=== PATIENT | female | born 1945 | race Caucasian/White ===

== ENCOUNTER → 2017-07-18 08:16 | Outpatient (CLI) | payer MEDICARE, SELFPAY ==
[2017-07-18 09:51] LABS: Calcium 9.6 mg/dL (8.4-10.2); Estimated Glomerular Filt Rate > 60.0 mL/min (>60); Glucose 94 mg/dL (80-110); HEMOLYSIS < 15 (0-50); Potassium 4.2 mmol/L (3.4-5.1); Sodium 144 mmol/L (137-145)
== END ==
PROVIDERS: PCP Family Medicine; Visit Provider Family Medicine
DX: I10 Essential (primary) hypertension (principal)
CPT/HCPCS: 36415; 80048

== ENCOUNTER → 2018-12-24 09:35 | Outpatient (CLI) | payer MEDICARE, SELFPAY ==
[2018-12-24 10:29] LABS: Alanine Aminotransferase 16 IU/L (9-52); Albumin 4.9 g/dL (3.5-5.0); Albumin Globulin Ratio 1.6 (1.0-2.8); Alkaline Phosphatase 75 U/L (38-126); Aspartate Aminotransferase 23 IU/L (14-36); BUN Creatinine Ratio 16.3 (6-22); Bilirubin Total 0.7 mg/dL (0.2-1.3); Blood Urea Nitrogen 13 mg/dL (7-17); Calcium 9.8 mg/dL (8.4-10.2); Carbon Dioxide 27 mmol/L (22-32); Chloride 105 mmol/L (98-107); Estimated Glomerular Filt Rate > 60.0 mL/min (>60); Globulin 3.1 g/dL (1.7-4.1); Glucose 105 mg/dL (80-110); HEMOLYSIS < 15 (0-50); Potassium 4.8 mmol/L (3.4-5.1); Sodium 142 mmol/L (137-145)
== END ==
PROVIDERS: PCP Family Medicine; Visit Provider Family Medicine
DX: I10 Essential (primary) hypertension (principal)
CPT/HCPCS: 36415; 80053

== ENCOUNTER → 2020-10-02 10:29 | Outpatient (CLI) | payer MEDICARE, SELFPAY ==
--- NOTE | 2020-10-02 10:30 | DI.MG.S_ITS ---
BILATERAL DIGITAL SCREENING MAMMOGRAM 3D/2D WITH CAD: 10/02/2020 CLINICAL: Routine screening. Comparison is made to exams dated: 06/29/2010 mammogram and 07/07/2011 mammogram - [facility]. The tissue of both breasts is predominantly fatty. Current study was also evaluated with a Computer Aided Detection (CAD) system. There is a new mass in the left breast at 4 o'clock middle depth. No other significant masses, calcifications, or other findings are seen in either breast. IMPRESSION: INCOMPLETE: NEEDS ADDITIONAL IMAGING EVALUATION The new mass in the left breast is indeterminate. Additional views with possible ultrasound are recommended. This exam was interpreted at Station ID: [id number]. NOTE: For mammograms, a report in lay terms will be sent to the patient. Approximately 15% of breast malignancies will not be visualized mammographically. In the management of a palpable breast mass, a negative mammogram must not discourage biopsy of a clinically suspicious lesion. Electronically Signed By: Ajit conrad/louis:10/02/2020 11:56:45 letter sent: Additional Imaging Needed ACR BI-RADS Category 0: Incomplete [id number]
== END ==
PROVIDERS: PCP Family Medicine; Referring Provider Family Medicine; Visit Provider Family Medicine
DX: Z12.31 Encounter for screening mammogram for malignant neoplasm of breast (principal)
CPT/HCPCS: 77063; 77067

== ENCOUNTER → 2020-10-21 08:43 | Outpatient (CLI) | payer MEDICARE, SELFPAY ==
[2020-10-21 09:35] LABS: Add Manual Diff / Slide Review NO; Basophils Absolute Auto 100 /uL (0-100); Basophils Percent Auto 1.2 % (0-2); Eosinophils Absolute Auto 100 /uL (0-450); Eosinophils Percent Auto 1.8 % (2-4); Hematocrit 45.4 % (36-46); Lymphocytes Absolute Auto 2000 /uL (1100-4500); Lymphocytes Percent Auto 35.7 % (25-40); Mean Corpuscular HGB Conc 33.1 % (30-36); Mean Corpuscular Hemoglobin 28.4 PG (26-34); Mean Corpuscular Volume 85.9 fL (80-100); Monocytes Absolute Auto 500 /uL (0-900); Monocytes Percent Auto 8.2 % (3-14); Neutrophils Absolute Auto 3000 /uL (1500-7000); Neutrophils Percent Auto 53.1 % (50-75); Platelet Count 271 X10^3/uL (150-400); Red Blood Cell Count 5.28 X10^6/uL (4.0-5.2); White Blood Cell Count 5.7 X10^3/uL (4.5-11.0)
[2020-10-21 10:00] LABS: Alanine Aminotransferase 14 IU/L (<35); Albumin 4.4 g/dL (3.5-5.0); Albumin Globulin Ratio 1.5 (1.0-2.8); Alkaline Phosphatase 72 U/L (38-126); Aspartate Aminotransferase 23 IU/L (14-36); BUN Creatinine Ratio 19.1 (6-22); Bilirubin Total 0.5 mg/dL (0.2-1.3); Blood Urea Nitrogen 17 mg/dL (7-17); Calcium 9.5 mg/dL (8.4-10.2); Carbon Dioxide 27 mmol/L (22-32); Chloride 106 mmol/L (98-107); Estimated Glomerular Filt Rate > 60.0 mL/min (>60); Globulin 2.9 g/dL (1.7-4.1); Glucose 98 mg/dL (80-110); HEMOLYSIS < 15 (0-50); Potassium 4.5 mmol/L (3.4-5.1); Sodium 140 mmol/L (137-145); Total Protein 7.3 g/dL (6.3-8.2)
[2020-10-22 16:32] LABS: Fecal Immunochemical Test Negative (Negative)
== END ==
PROVIDERS: PCP Family Medicine; Referring Provider Family Medicine; Visit Provider Family Medicine
DX: I10 Essential (primary) hypertension (principal); N63.20 Unspecified lump in the left breast, unspecified quadrant; Z12.11 Encounter for screening for malignant neoplasm of colon
CPT/HCPCS: 36415; 80053; 82274; 85025

== ENCOUNTER → 2020-10-26 09:15 | Outpatient (CLI) | payer MEDICARE, SELFPAY ==
--- NOTE | 2020-10-26 | DI.MG.S_ITS ---
UNILATERAL LEFT DIGITAL DIAGNOSTIC MAMMOGRAM 3D/2D WITH ADDITIONAL VIEWS: 10/26/2020 CLINICAL: Additional evaluation requested from prior study. Comparison is made to exams dated: 10/02/2020 mammogram, 07/07/2011 mammogram, and 06/29/2010 mammogram - [facility]. The tissue of left breast is predominantly fatty. There is a 1.3 cm x 0.8 cm irregular equal density mass in the left breast at 6 o'clock middle depth. This is confirmed in additional views. No other significant masses or calcifications are seen in the breast. IMPRESSION: INCOMPLETE: NEEDS ADDITIONAL IMAGING EVALUATION The 1.3 cm x 0.8 cm irregular equal density mass in the left breast is indeterminate. An ultrasound is recommended for further evaluation and is scheduled to immediately follow this examination. This exam was interpreted at Station ID: [id number]. NOTE: For mammograms, a report in lay terms will be sent to the patient. Approximately 15% of breast malignancies will not be visualized mammographically. In the management of a palpable breast mass, a negative mammogram must not discourage biopsy of a clinically suspicious lesion. Electronically Signed By: James Quiroz M.D. aty/:10/26/2020 09:49:27 ACR BI-RADS Category 0: Incomplete [id number]
--- NOTE | 2020-10-26 | DI.US.S_ITS ---
ULTRASOUND OF LEFT BREAST AND AXILLA: 10/26/2020 CLINICAL: Patient returns today to evaluate a focal asymmetry in the left breast. Comparison is made to exams dated: 10/26/2020 mammogram, 10/02/2020 mammogram, and 07/07/2011 mammogram - [facility]. Color flow and real-time ultrasound of the left breast axilla were performed. Reyes scale images of the real-time examination were reviewed. There is a 1.1 cm x 1 cm x 1 cm irregular mass with an indistinct margin in the left breast at 4 o'clock middle depth 4 cm from the nipple. This irregular mass is hypoechoic with an echogenic boundary and posterior acoustic shadowing. This correlates with mammography findings. Color flow imaging demonstrates that there is vascularity present. No significant abnormalities were seen sonographically in the left axilla. IMPRESSION: HIGHLY SUGGESTIVE OF MALIGNANCY The 1.1 cm x 1 cm x 1 cm irregular mass in the left breast is highly suggestive of malignancy. An ultrasound guided biopsy is recommended. Findings and recommendations were discussed with the patient during today's examination by Dr. Carl. This exam was interpreted at Station ID: [id number]. Electronically Signed By: James Quiroz M.D. aty/:10/26/2020 10:33:33 letter sent: Biopsy Required Ultrasound BI-RADS: 5 Highly suggestive of malignancy
== END ==
PROVIDERS: PCP Family Medicine; Referring Provider Family Medicine; Visit Provider Family Medicine
DX: R92.8 Other abnormal and inconclusive findings on diagnostic imaging of breast (principal); N63.23 Unspecified lump in the left breast, lower outer quadrant
CPT/HCPCS: 76642; 77065; G0279

== ENCOUNTER → 2020-11-18 13:09 | Outpatient (CLI) | payer MEDICARE, SELFPAY ==
--- NOTE | 2020-11-18 | DI.MG.S_ITS ---
UNILATERAL LEFT DIGITAL DIAGNOSTIC MAMMOGRAM 3D/2D POST-NEEDLE BIOPSY: 11/18/2020 CLINICAL: Post clip placement. Breast lump. Comparison is made to exams dated: 10/26/2020 mammogram, 10/02/2020 mammogram, and 07/07/2011 mammogram - [facility]. The tissue of left breast is predominantly fatty. There is a marker clip in the appropriate position in the left breast at 4 o'clock middle depth. This marker clip placement is at the biopsy site. This correlates with ultrasound findings and the biopsy. IMPRESSION: POST PROCEDURE MAMMOGRAM FOR MARKER PLACEMENT There was a successful marker clip placement in the left breast middle depth. This exam was interpreted at Station ID: [id number]. NOTE: For mammograms, a report in lay terms will be sent to the patient. Approximately 15% of breast malignancies will not be visualized mammographically. In the management of a palpable breast mass, a negative mammogram must not discourage biopsy of a clinically suspicious lesion. Electronically Signed By: James Quiroz M.D. aty/:11/18/2020 17:37:52 ACR BI-RADS Category Post-procedure mammogram for marker placement
--- NOTE | 2020-11-18 | PATH_ITS ---
[facility] Accession Number: [id number] . 01 Material submitted: . breast - LEFT BREAST MASS 4:00 4CMFN . 01 Diagnosis: A. Left Breast Mass, 4 o'clock, 4 cm from the Nipple, Biopsy: Invasive (ductal) carcinoma, with lobular growth pattern, grade 2 of 3 (Murray combined histologic grade, total score 6/9), with the following features: 1. Nuclear pleomorphism: Intermediate. (2/3) 2. Mitotic rate: Low. (1/3) 3. Tubular differentiation: Little or none. (3/3) 4. Size of invasive carcinoma: Present on multiple cores, single largest dimension of 5 mm on this sample. 5. Ductal carcinoma in situ: Absent. 6. Calcifications: Absent. 7. Lymphatic invasion: Absent in this specimen. 8. Prognostic markers: - Estrogen receptor: Positive (more than 90%, Strong). - Progesterone receptor: Positive (10-20%, Moderate). - HER2 status: Negative for protein overexpression by immunohistochemistry (0). V 11/23/2020 1531 Local . 01 Electronically signed: . Orly Sommers MD, Pathologist NPI- [id number] . 01 Gross description: . The specimen is received in formalin, labeled left breast 4 o'clock, 4 cm from nipple and consists of multiple arguelles-yellow cores of fibroadipose tissue measuring 1.5 x 1.0 x 0.3 cm in aggregate. The specimen is filtered and entirely submitted in cassette A1. . Formalin fixation time: Approximately 25 hours. (EA:[id number]) /MRV 11/19/2020 1047 Local . 01 Microscopic: . E-cadherin and beta-catenin immunostains are performed on block A1 in order to assess the invasive carcinoma cells, which demonstrate lobular growth pattern, with appropriately staining external controls. The invasive carcinoma cells demonstrate strong nuclear membrane staining for e-cadherin and beta-catenin, in support of the diagnosis. . Predictive marker immunohistochemical studies are performed on block A1 with the invasive carcinoma showing the following results: . Estrogen receptor (SP1): Positive (more than 90% tumor cells staining, strong intensity). Progesterone receptor (1E2): Positive (10-20% tumor cells staining, moderate intensity). Her2 (4B5): Negative for protein overexpression by immunohistochemistry (0). . Cold ischemic time is <5 minutes. The scoring criteria for breast biomarkers by immunohistochemistry is based on the ASCO/CAP guidelines (Adina AC et al, J Clin Oncol: 2017Sep 05;36(20):4487-8853 and Amparo CROSS et al, Arch Pathol Lab Med: 2009;134(6):907-22). Deparaffinized sections of formalin fixed tissue (along with appropriate positive controls) are incubated with the above antibody(s). Using the automated Escalon stainer, tissue is incubated with the designated antibody which is then localized by a non-biotin, dual polymer detection system. The external controls are reviewed for appropriate reactivity and found to be adequate. Results on the target cell population are indicated above. These tests have not been validated on decalcified tissue. This test was developed and its performance characteristics determined by [employer]. It has not been cleared or approved by the U.S. Food and Drug Administration. The FDA has determined that such clearance or approval is not necessary. This test is used for clinical purposes. It should not be regarded as investigational or for research. . 01 Pathologist provided ICD-10: C50.912 . 01 CPT . 361269, 885087, 775371, 776640 Performed at: 01 [facility] [address], [place], [place] [id number] MD Drew Morrison MD Phone: [phone]
--- NOTE | 2020-11-18 13:11 | DI.US.S_ITS ---
ULTRASOUND GUIDED BIOPSY LEFT BREAST USING VACUUM DEVICE WITH MARKING DEVICE INSERTED AND POST MAMMOGRAPHIC IMAGIN11/18/2020 CLINICAL: Right breast mass. Left breast mass. PATIENT CONSENT: Risks (minor bleeding, infection, vasovagal reaction and repeat procedure), benefits and alternatives were explained to the patient and written informed consent was obtained. Correlation is made to exams dated: 11/18/2020 mammogram, 10/26/2020 mammogram, 10/26/2020 ultrasound, 10/02/2020 mammogram, 07/07/2011 mammogram, and 06/29/2010 mammogram - [facility]. An ultrasound guided biopsy using real-time ultrasound was performed for the irregular shaped mass located in the left breast at 4 o'clock middle depth 4 cm from the nipple. This was described on the previous mammography and ultrasound reports. The skin was prepped in the usual manner. Local anesthetic was administered to the access site. A skin leni was made in the breast. The abnormality was approached from the lateral aspect. A 13 gauge biopsy needle was placed adjacent to the abnormality through an introducer device under ultrasound guidance. Once the needle was documented to be in the correct location, seven specimens were obtained using a vacuum assisted device. A clip was inserted into the biopsy cavity. A sterile dressing was applied to the access site. Post procedure mammographic imaging demonstrates the location device at the targeted area. The specimens were sent to the laboratory for pathological analysis. IMPRESSION: ULTRASOUND GUIDED BIOPSY MALIGNANT Ultrasound guided biopsy of the mass in the left breast at 4 o'clock middle depth 4 cm from the nipple was successful. Pathology indicates malignant invasive ductal carcinoma with lobular growth pattern. Pathology results are concordant with mammography and ultrasound findings. Surgical and oncologic consultation are recommended. This exam was interpreted at Station ID: [id number]. James slater,ddp/:11/25/2020 16:49:33
== END ==
PROVIDERS: PCP Family Medicine; Referring Provider Family Medicine; Visit Provider Family Medicine
DX: N63.20 Unspecified lump in the left breast, unspecified quadrant (principal); R92.8 Other abnormal and inconclusive findings on diagnostic imaging of breast
CPT/HCPCS: 19083; 77065

== ENCOUNTER → 2020-12-28 10:24 | Outpatient (CLI) | payer MEDICARE, SELFPAY ==
[2020-12-28 11:36] LABS: COVID19 -Nasal RAPID Negative (Negative)
== END ==
PROVIDERS: Family Provider Family Medicine; PCP Family Medicine; Visit Provider Surgery
DX: Z20.822 Contact with and (suspected) exposure to COVID-19 (principal)
CPT/HCPCS: 87635

== ENCOUNTER 2020-12-29 10:54 | Day surgery (SDC) | payer MEDICARE, SELFPAY ==
[2020-12-24 13:24] VITALS: BMI 28.9
[2020-12-29] VITALS (8 sets, daily range): BP systolic 87–160; BP diastolic 46–77; PULSE 65–76; RESP 10–16; TEMP 36.2–36.4; O2SAT 93–97
--- NOTE | 2020-12-29 | DI.MG.S_ITS ---
UNILATERAL LEFT DIGITAL DIAGNOSTIC MAMMOGRAM 3D/2D POST-NEEDLE BIOPSY: 12/29/2020 CLINICAL: Left breast Cancer. Comparison is made to exams dated: 12/29/2020 localization, 11/18/2020 ultrasound biopsy, 11/18/2020 mammogram, and 10/02/2020 mammogram - [facility]. The tissue of left breast is predominantly fatty. There is wire localization of marker clip in the appropriate position in the left breast at 4 o'clock middle depth. This marker clip placement is at the biopsy site. IMPRESSION: POST PROCEDURE MAMMOGRAM FOR MARKER PLACEMENT There was a successful wire localization of a marker clip in the left breast . This exam was interpreted at Station ID: [id number]. NOTE: For mammograms, a report in lay terms will be sent to the patient. Approximately 15% of breast malignancies will not be visualized mammographically. In the management of a palpable breast mass, a negative mammogram must not discourage biopsy of a clinically suspicious lesion. Electronically Signed By: Lio davis/:12/31/2020 10:28:22 ACR BI-RADS Category Post-procedure mammogram for marker placement
--- NOTE | 2020-12-29 | PATH_ITS ---
[facility] Accession Number: [id number] . 01 Material submitted: . PART A: lymph node - SENTINEL LYMPH NODE PART B: breast - LEFT LUMPECTOMY . 01 Clinical history: . LEFT BREAST LUMPECTOMY W/SENTINAL LYMPH NODE BX . 02 Diagnosis: A. [place] Lymph Node, Biopsy: One lymph node negative for metastatic carcinoma (0/1) by immunohistochemistry studies. . B. Breast, Left Lumpectomy: Positive for mammary carcinoma. Please see Cancer Case Summary below. . CANCER CASE SUMMAARY: . SPECIMEN Procedure: Lumpectomy with sentinel lymph node biopsy. Specimen Laterality: Left. . Tumor Tumor Site: 4 o'clock, 4 cm from nipple per imaging report (11/18/2020). Histologic Type: Invasive carcinoma of no special type (ductal). . Histologic Grade Glandular/Tubular Differentiation: Score 3 of 3. Nuclear Pleomorphism: 3 of 3. Mitotic Rate: 2 of 3. Overall Grade: Grade 2 (score 8 of 9). Tumor Size: 16 mm. Tumor Focality: Single focus of invasive carcinoma. . Ductal Carcinoma In Situ: Present. Size of DCIS: Less than 1 mm. Architectural Patterns: Solid. Nuclear Grade: Grade 1 (low). Necrosis: Not identified. Lobular Carcinoma In Situ: Not identified. . Lymphovascular Invasion: Not identified. Dermal Lymphovascular Invasion: No skin present. Microcalcifications: Not identified. . Treatment Effect in the Breast: No known presurgical therapy. Treatment Effect in Lymph Nodes: Not applicable. . Margins Margin Status for Invasive Carcinoma: Superior margin positive for involvement by invasive carcinoma (region of involvement measures less than 1 mm). All other margins negative for involvement by tumor. Anterior: Less than 1 mm. Posterior: Less than 1 mm. Medial: Greater than 10 mm. Lateral: Greater than 10 mm. Inferior: Greater than 10 mm. . Margin Status for DCIS: All margins negative for DCIS. Distance from DCIS to Closest Margin: 5 mm from the superior margin. Inferior: Greater than 10 mm. Posterior: 8 mm. Anterior: Greater than 10 mm. Medial: Greater than 10 mm. Lateral: Greater than 10 mm. . Regional Lymph Node Status: One sentinel lymph node negative for tumor by immunohistochemistry. Number of Lymph Nodes with Macrometastasis: 0. Number of Lymph Nodes with Micrometastasis: 0. Number of Lymph Nodes with Isolated Tumor Cells: 0. Size of Largest Carlos Metastatic Deposit: Not applicable. Extranodal Extension: Not identified. Total Number of Lymph Nodes Examined ([place] and Nonsentinel): 1. Number of [place] Nodes Examined: 1. . Distant Metastasis: Not applicable. . Pathologic Stage Classification (pTNM, AJCC 8th Edition): pT1c pN0 (i-) . Additional Findings: Biopsy clip in slice 5, adjacent to mass. Changes consistent with previous instrumentation are present. . Special Studies Performed on this patient's previous biopsy ([facility] [id number]; 11/23/2020) and demonstrate the following by written report: . Estrogen Receptor: Positive (more than 90%, strong). Progesterone Receptor: Positive (10-20%, moderate). HER-2 Status: Negative for protein overexpression by immunohistochemistry (0+). [facility] 01/01/2021 1456 Local . 02 Comment: A. An immunostain for JOLENE is performed on blocks A1 and A2 to evaluate the cells of interest, and is negative. The control stain showed appropriate reactivity. . * This test was developed and its performance characteristics determined by [facility]. It has not been cleared or approved by the U.S. Food and Drug Administration. The FDA has determined that such clearance or approval is not necessary. This test is used for clinical purposes. It should not be regarded as investigational or for research. . 02 Electronically signed: . Yulissa Nguyễn MD, Pathologist NPI- [id number] . 01 Gross description: . A. Received in formalin labeled with the patient's name and sentinel lymph node is a 3.7 x 2.5 x 1.4 cm fatty tissue within which a 2.6 x x 1.2 x 0.8 cm arguelles-brown rubbery lymph node is identified. The specimen is serially sectioned to reveal a predominantly fatty cut surface with lymphoid tissue containing green discoloration. The sectioned lymph node is entirely submitted in cassettes A1-A2. . B. Received: In formalin, labeled with left lumpectomy. Specimen: Left partial mastectomy. Weight: 32 grams. Measurement: 6 cm superior to inferior, 5.3 cm medial to lateral, 3.1 cm anterior to posterior. Skin Ellipse: Absent. Wire: Present within the container, but not embedded within the specimen. Margins: Oriented with short stitch superior, long stitch lateral and inked as follows: superior = blue, inferior = green, anterior = red, posterior = black, medial = yellow, lateral = orange. Slice: Medial to lateral into ten slices. Lesions: One. Description: Firm, white, stellate mass with a biopsy clip (slice 5). Size: 1.6 x 1.5 x 1.5 cm. Slices Involved: Slices 3 through 6. Biopsy Site: Present, biopsy clip, slice 5. Distance to Margins: Abuts the superior margin, 0.1 cm from the anterior margin, 0.3 cm from the posterior margin, 1.2 cm from the medial margin, and 3.1 cm from the inferior margin. Other: The remaining cut surfaces consists of yellow, lobulated adipose tissue. No additional discrete masses or lesions are grossly identified. Fixation Time: Specimen is placed in formalin at approximately 12 o'clock on 12/29/2020 for a total fixation time of approximately 30 hours. Sections: B1: Slice 1, delivery representative medial end of specimen, perpendicular. B2: Slice 2, delivery representative adjacent to tumor with anterior and medial margins. B3: Slice 3, mass and superior and anterior margins. B4: Slice 4, mass and anterior, superior and inferior margins. B5: Slice 5, mass and anterior, superior and inferior margins, site of biopsy clip. B6: Slice 7, delivery representative, no identifiable tumor, lateral to tumor. B7: Slice 10, entirely, lateral end of specimen. ([id number]) /[facility] 01/01/2021 1501 Local . 02 Microscopic: . An immunohistochemistry study is performed on blocks A1 and A2 to evaluate the cells of interest. The control stain shows appropriate reactivity. . RESULTS: A1-A2: . JOLENE: Negative for epithelial cells; the control tissue stained appropriately. . * This test was developed and its performance characteristics determined by [facility]. It has not been cleared or approved by the U.S. Food and Drug Administration. The FDA has determined that such clearance or approval is not necessary. This test is used for clinical purposes. It should not be regarded as investigational or for research. . 02 Pathologist provided ICD-10: C50.912 . 02 CPT . 240475, 588227, [id number] Performed at: 01 [facility] [address] [place] [id number] MD Drew Morrison MD Phone: [phone] Performed at: 02 [facility] [address] [place] [id number] MD Erin Everett MD Phone: [phone]
--- NOTE | 2020-12-29 | DI.MG.S_ITS ---
SPECIMEN LEFT BREAST: 12/29/2020 CLINICAL: Breast speciman. Correlation is made to exam dated: 12/29/2020 [facility]. A surgical specimen was imaged for the previous biopsy site located in the left breast at 4 o'clock anterior depth. IMPRESSION: SPECIMEN The imaged specimen includes a biopsy clip and the distal portion of the localization wire. This exam was interpreted at Station ID: [id number]. Lio davis/:12/29/2020 17:25:25
--- NOTE | 2020-12-29 10:57 | DI.US.S_ITS ---
ULTRASOUND GUIDED WIRE LOCALIZATION LEFT BREAST: 12/29/2020 CLINICAL: Pre-op wire localization with ultrasound guidance. Correlation is made to exams dated: 11/18/2020 ultrasound biopsy, 11/18/2020 mammogram, 10/26/2020 ultrasound, 10/26/2020 mammogram, 10/02/2020 mammogram, and 07/07/2011 mammogram - [facility]. A wire localization using ultrasound guidance was performed for the marker clip located in the left breast at 4 o'clock middle depth. The skin was prepped in the usual manner. Local anesthetic was administered to the access site. A wire was inserted into the targeted area under ultrasound guidance. IMPRESSION: WIRE LOCALIZATION Wire localization for the marker clip in the left breast at 4 o'clock middle depth was successful. A specimen radiograph is recommended. This exam was interpreted at Station ID: [id number]. Lio advis/:12/29/2020 13:36:45
--- NOTE | 2020-12-29 10:57 | DI.NM.S_ITS ---
PROCEDURE: NM SENTINEL NODE W IMAGING RADIOPHARMACEUTICAL: 0.5-1.0 mCi Millipore filtered Tc-99m sulfur colloid. INDICATIONS: breast surgery COMPARISON: None. TECHNIQUE: The area around the nipple was prepped and draped in a sterile fashion. Tc-99m sulfur colloid was injected intra-dermally in the outer edge of the areola in the left breast. Images were obtained subsequently. A body contour outline was obtained. FINDINGS: There is/are 2 lymph node(s) in the ipsilateral axilla, which is marked on the skin and the images for referring physician. IMPRESSION: Administration of radiotracer into the left breast periareolar region for intra-operative sentinel lymph node localization. Dictated by: Marichuy Cosby MD, PhD on 12/29/2020 at 11:57 Approved by: Marichuy Cosby MD, PhD on 12/29/2020 at 11:58
[2020-12-29] MEDS: LACTATED RINGERS 1,000 ML 100 ML IV (11:51)
--- NOTE | 2020-12-29 14:58 | PM.PREOP ---
Pre-operative Note Interval Note History & Physical reviewed/Exam performed by Physician: Yes Changes to H&P: No
[2020-12-29] MEDS: CLINDAMYCIN 900 MG/50 ML PIGGYBACK 50 MG IV (15:30)
[2020-12-29] MEDS: METHYLENE BLUE 50 MG/10 ML VIAL INJ (15:40)
--- NOTE | 2020-12-29 15:44 | SUR.OPER ---
Supine on padded OR bed, head on pillow, arms secured on padded arm boards at <90 degrees abduction, legs uncrossed, safety belt at thigh, tape over blanket over lower legs.
--- NOTE | 2020-12-29 17:22 | PM.OP.1 ---
Operative Date/Time/Diagnoses Date of procedure: 12/29/20 Time of procedure: 17:22 Pre-op diagnosis: Left breast cancer Post-op diagnosis: same Procedure & Clinicians Procedure: Left lumpectomy and sentinel lymph node biopsy Same procedure as scheduled: Yes Indications: 75-year-old woman with biopsy-proven left breast cancer clinically node negative Surgeon: Jj Malik Click Yes if Unassisted: Yes Anesthesia Type: General Operative Notes Findings: Wire and clip her within the lumpectomy specimen. One sentinel lymph node identified count 300 for 10 seconds Specimen(s): other (Left Lumpectomy, left sentinel lymph node) Estimated Blood Loss (mL): 20 Procedure in detail: The patient underwent needle localized prior to the operation. They were brought to the operating room and placed supine on the table. Bilateral lower extremity compression devices were applied. They were intubated with an LMA. 3 ml of methlyene blue was injected into the dermal space around the areola and massaged into the tissue. They were prepped and draped in sterile fashion. Time-out was performed. An incision was made in the left axilla just inferior to the hair bearing region. Dissection was carried down through the subcutaneous tissue towards the chest wall guided by the Neoprobe. One sentinel node was found, the count was 300 but it did not appear to have taken up the blue dye. The node was removed the tissue was ligated with silk suture. There was minimal background probe activity following excision of the node. Hemostasis was achieved. The subcutaneous tissue was closed with vicryl the skin with 4-o monocryl followed by dermabond. A curvilinear incision on the inferior aspect of the left breast was made over the mass and subcutaneous tissues were divided. The localizing wire was identified and then brought back within the incision. The end of the wire was within a palpable 2 cm breast mass middle depth approximately 5 o clock. The mass was excised with the wire and the clip. Specimen was marked short stitch superior long stitch lateral. Imaging demonstrated that the specimen contained the wire and the associated clip. Subcutaneous tissues were reapproximated with 3 0 Vicryl sutures skin closed with Monocryl followed by application of Dermabond. The counts were correct. They emerged from anesthesia and were transferred to recovery in stable condition. Complications: none Post-operative Condition: stable Disposition: same day surgery
[2020-12-29] MEDS: OXYCODONE IR 5 MG TABLET PO (17:40)
== END 2020-12-29 18:15 | disposition home or self-care (01) ==
PROVIDERS: Family Provider Family Medicine; PCP Family Medicine; Referring Provider Surgery; Visit Provider Surgery
PROC: (CPT 19301; principal; 2020-12-29 14:45)
DX: C50.912 Malignant neoplasm of unspecified site of left female breast (principal); Z17.0 Estrogen receptor positive status [ER+]
CPT/HCPCS: 38500; 19125; 19285; 76098; 77065; 78195; 82962; A9541; C1819; J1100; J2405; J2704; J3010; Q9968

== ENCOUNTER 2021-01-05 06:11 | Day surgery (SDC) | payer MEDICARE, SELFPAY ==
[2021-01-04 13:38] VITALS: BMI 28.9
--- NOTE | 2021-01-04 16:18 | PM.HP.1 ---
History of Present Illness History of Present Illness Chief complaint: [facility] [place] Narrative: 75F 1 week sp left breast lumpectomy and sentinel lymph node biopsy. Pathology demonstrates negative sentinel node however the superior margin of lumpectomy is positive for invasive carcinoma. I spoke with the patient yesterday to discuss her pathology results and recommended that we proceed with re excision of margins. She is overall feeling well. Diagnosis: A. Dixon Lymph Node, Biopsy: ?? ? One lymph node negative for metastatic carcinoma (0/1) by ? ? ? immunohistochemistry studies. . B. Breast, Left Lumpectomy: ?? ? Positive for mammary carcinoma. ?? ? Please see Cancer Case Summary below. . CANCER CASE SUMMAARY: . SPECIMEN Procedure:? Lumpectomy with sentinel lymph node biopsy. Specimen Laterality:? Left. . Tumor Tumor Site:? 4 o'clock, 4 cm from nipple per imaging report (11/18/2020). Histologic Type:? Invasive carcinoma of no special type (ductal). . Histologic Grade Glandular/Tubular Differentiation:? Score 3 of 3. Nuclear Pleomorphism:? 3 of 3. Mitotic Rate:? 2 of 3. Overall Grade:? Grade 2 (score 8 of 9). Tumor Size: 16 mm. Tumor Focality:? Single focus of invasive carcinoma. . Ductal Carcinoma In Situ:? Present. Size of DCIS:? Less than 1 mm. Architectural Patterns:? Solid. Nuclear Grade:? Grade 1 (low). Necrosis:? Not identified. Lobular Carcinoma In Situ:? Not identified. . Lymphovascular Invasion: Not identified. Dermal Lymphovascular Invasion:? No skin present. Microcalcifications:? Not identified. . Treatment Effect in the Breast:? No known presurgical therapy. Treatment Effect in Lymph Nodes:? Not applicable. . Margins Margin Status for Invasive Carcinoma:? Superior margin positive for involvement by invasive carcinoma (region of involvement measures less than 1 mm). All other margins negative for involvement by tumor. Anterior:? Less than 1 mm. Posterior: Less than 1 mm. Medial:? Greater than 10 mm. Lateral:? Greater than 10 mm. Inferior:? Greater than 10 mm. Patient History Medical History Cataract (lens) fragments in eye following cataract surgery, bilateral History of arthritis History of cataract History of measles History of retinal vein occlusion History of uterine fibroid Surgical History History of knee replacement History of knee replacement Status post appendectomy Status post knee surgery Status post knee surgery Family & Social History Family History Father Lyme disease Mother Congestive heart failure Sister No problems noted. Grandfather No problems noted. Grandmother No problems noted. Grandfather No problems noted. Grandmother No problems noted. Social History: household members spouse Tobacco & Substance use: Smoking Status Former smoker Smoking packs per day 1 alcohol intake current Meds Home Medications and Allergies Home Medications Medication Instructions Recorded Confirmed Type aflibercept 2 mg/0.05 mL 2 mg INTRAVITREAL Q4W ml 12/07/20 01/05/21 History intravitreal solution for injection (Eylea) acetaminophen 325 mg capsule 650 mg PO QID PRN #60 cap 12/29/20 01/05/21 Rx (Tylenol) amlodipine 5 mg tablet 5 mg PO DAILY 12/29/20 01/05/21 History aspirin 325 mg PO PRN PRN 12/29/20 01/05/21 History docusate sodium 100 mg capsule 100 mg PO BID #30 cap 12/29/20 01/05/21 Rx (Colace) ibuprofen 200 mg tablet 400 mg PO Q6H #60 tab 12/29/20 01/05/21 Rx oxycodone 5 mg tablet See Rx Instructions .ROUTE 12/29/20 01/05/21 Rx .COMPLEX PRN #30 tab Allergies Allergy/AdvReac Type Severity Reaction Status Date / Time penicillin G Allergy Intermediate joint Verified 01/05/21 06:35 swelling and rash Sulfa (Sulfonamide Allergy Mild Rash Verified 01/05/21 06:35 Antibiotics) lisinopril AdvReac Mild Cough Verified 01/05/21 06:35 Exam Narrative Exam Narrative: Gen-Adult woman alert and oriented no acute distress Chest-Left lumpectomy incision CDI Ext-WWP Assessment & Plan Assessment and plan (1) Breast cancer: Qualifiers: Qualified Code(s): Z17.0 - Estrogen receptor positive status [ER+] Status: Acute Assessment & Plan narrative: 75F 1 week sp left lumpectomy with sentinel lymph node biopsy has a positive superior margin. She is here for re excision of the superior margin. Technical details of the operation were discussed. Operative risks including bleeding, infection, reoccurence of cancer were discussed. Her questions have been answered and she is in agreement with this plan. Time Spent With Patient Critical Care time: I spent a total of [] minutes of critical care time on this patient's care today; this time is exclusive of procedural time.
--- NOTE | 2021-01-05 | PATH_ITS ---
[facility] Accession Number: [id number] . 01 Material submitted: . breast - LEFT BREAST RE-EXCISION . 01 Clinical history: . A: SHORT STITCH SUPERIOR, LONG LATERAL, INK COLEMAN TRUE SUPERIOR MARGIN . 02 Diagnosis: A. Left Breast, Re-excision: Fibrofatty breast parenchyma with histiocytic inflammation and mild chronic inflammation/fibrosis, consistent with fat necrosis. No evidence of atypia, carcinoma in situ, or malignancy, including evaluation of all margins. MRV 01/08/2021 1700 Local . 02 Electronically signed: . Orly Sommers MD, Pathologist NPI- [id number] . 01 Gross description: . The specimen is received in formalin, labeled left breast reexcision and consists of a 5-gram lumpectomy specimen measuring 4.0 cm from medial to lateral by 2.5 cm from anterior to posterior by 1.3 cm from superior to inferior. The specimen is oriented with a short suture designated superior, a long suture designated lateral, and inked designated true superior margin. The specimen is inked as follows: Superior blue, inferior green, anterior red, posterior black, medial yellow and lateral orange. The specimen is serially sectioned from medial to lateral and is entirely submitted. . A1: Medial margin, perpendicularly sectioned. A2-A4: Central cross sections. A5: Lateral margin, perpendicularly sectioned. (EA:[id number]) /MRV 01/06/2021 1134 Local . 02 Pathologist provided ICD-10: C50.912 . 02 CPT . 865117 Performed at: [address], [place], [place] [id number] MD Drew Morrison MD Phone: [phone] Performed at: 02 [facility] [place] [id number] [place] [id number] MD Erin Everett MD Phone: [phone]
[2021-01-05 06:47] VITALS: BP 131/75; PULSE 79; RESP 16; TEMP 36.5; O2SAT 96; BMI 28.9
[2021-01-05 07:00] LABS: COVID19 -Nasal RAPID Negative (Negative)
[2021-01-05] MEDS: LACTATED RINGERS 1,000 ML 100 ML IV (07:02)
[2021-01-05] MEDS: CLINDAMYCIN 900 MG/50 ML PIGGYBACK 50 MG IV (07:50)
--- NOTE | 2021-01-05 08:02 | SUR.OPER ---
Supine on padded OR bed, head on pillow, arms secured on padded arm boards at <90 degrees abduction, legs uncrossed, safety belt at thigh, tape over blanket over lower legs.
[2021-01-05] MEDS: BUPIVACAINE 0.25% (PF) VIAL 30 ML INJ (08:09)
[2021-01-05 08:36] VITALS: BP 101/40; PULSE 73; RESP 12; O2SAT 95
[2021-01-05 08:40] VITALS: BP 121/72; PULSE 71; RESP 12; TEMP 36.2; O2SAT 95
[2021-01-05 08:45] VITALS: BP 126/67; PULSE 68; RESP 12; O2SAT 95
--- NOTE | 2021-01-05 08:45 | PM.OP.1 ---
Operative Date/Time/Diagnoses Date of procedure: 01/05/21 Time of procedure: 08:46 Pre-op diagnosis: Breast cancer Post-op diagnosis: same Procedure & Clinicians Procedure: Re-excision of margin Same procedure as scheduled: Yes Indications: 75-year-old female status post lumpectomy and sentinel lymph node biopsy with a positive margin here for re-excision. Surgeon: Jj Malik Click Yes if Unassisted: Yes Anesthesia Type: General Operative Notes Findings: No palpable abnormality could be identified within the breast cavity Specimen(s): other (Superior margin. Short stitch superior long stitch lateral. Ink gomes the true superior margin) Estimated Blood Loss (mL): 5 Procedure in detail: Patient was brought to the operating room placed supine on the table. Bilateral lower extremity compression devices were applied. She received clindamycin prior to skin incision. Anesthesia was induced she was intubated with an LMA. She was prepped and draped sterile fashion time-out performed. The previous left lumpectomy incision was opened. The cavity was carefully palpated in all directions there was no abnormal tissue readily identifiable. The superior margin of the cavity was then sharply excised and passed off the field as specimen. The superior portion was marked with a short stitch long stitch lateral and ink was placed on the true superior margin. Hemostasis was achieved. Subcutaneous tissue was closed with Vicryl suture skin closed with Monocryl followed by Dermabond and application of Steri-Strips. Patient tolerated procedure well. She was extubated and transferred to recovery room in stable condition. Complications: none Post-operative Condition: stable Disposition: same day surgery
[2021-01-05 08:50] VITALS: BP 121/71; PULSE 67; RESP 12; TEMP 36.4; O2SAT 95
[2021-01-05 09:01] VITALS: BP 127/58; PULSE 63; RESP 12; O2SAT 96
[2021-01-05] MEDS: OXYCODONE/ACETAMINOPHEN 5/325 TABLET 1 TAB PO (09:05)
== END 2021-01-05 09:25 | disposition home or self-care (01) ==
PROVIDERS: Family Provider Family Medicine; PCP Family Medicine; Referring Provider Surgery; Visit Provider Surgery
PROC: (CPT 19301; principal; 2021-01-05 07:45)
DX: C50.912 Malignant neoplasm of unspecified site of left female breast (principal); Z20.822 Contact with and (suspected) exposure to COVID-19; Z17.0 Estrogen receptor positive status [ER+]
CPT/HCPCS: 19301; 82962; 87635; J1100; J2405; J2704; J3010

== ENCOUNTER → 2021-10-19 08:39 | Outpatient (CLI) | payer MEDICARE, SELFPAY ==
--- NOTE | 2021-10-19 | DI.MG.S_ITS ---
BILATERAL DIGITAL DIAGNOSTIC MAMMOGRAM 3D/2D - LEFT BREAST POST LUMPECTOMY POST-RADIATION THERAPY: 10/19/2021 CLINICAL: Lumpectomy Left. Personal history of left breast cancer. Comparison is made to exams dated: 12/29/2020 mammogram, 11/18/2020 mammogram, 10/02/2020 mammogram, and 07/07/2011 mammogram - [facility]. The tissue of both breasts is predominantly fatty. There are post operative findings in the left breast. No significant masses, calcifications, or other findings are seen in either breast. There has been no significant interval change. IMPRESSION: BENIGN There is no mammographic evidence of malignancy. A 1 year screening mammogram is recommended. Exam findings were conveyed to the patient. Patient is advised to monitor for significant change. This exam was interpreted at Station ID: [id number]. NOTE: For mammograms, a report in lay terms will be sent to the patient. Approximately 15% of breast malignancies will not be visualized mammographically. In the management of a palpable breast mass, a negative mammogram must not discourage biopsy of a clinically suspicious lesion. Electronically Signed By: Hima Neri M.D. slc/:10/19/2021 09:09:52 letter sent: Normal Exam ACR BI-RADS Category 2: Benign Finding(s) 3342F
== END ==
PROVIDERS: Family Provider Family Medicine; PCP Family Medicine; Referring Provider Radiology Radiation Oncology; Visit Provider Radiology Radiation Oncology
DX: C50.512 Malignant neoplasm of lower-outer quadrant of left female breast; Z17.0 Estrogen receptor positive status [ER+]
CPT/HCPCS: 77066; G0279

== ENCOUNTER → 2022-02-02 08:38 | Outpatient (CLI) | payer MEDICARE, SELFPAY ==
[2022-02-02 09:31] LABS: Add Manual Diff / Slide Review NO; Basophils Absolute Auto 100 /uL (0-100); Eosinophils Absolute Auto 100 /uL (0-450); Eosinophils Percent Auto 2.7 % (2-4); Hematocrit 43.2 % (36-46); Hemoglobin 14.9 g/dL (12.0-16.0); Lymphocytes Absolute Auto 2000 /uL (1100-4500); Mean Corpuscular HGB Conc 34.5 % (30-36); Mean Corpuscular Hemoglobin 28.9 PG (26-34); Mean Corpuscular Volume 83.7 fL (80-100); Monocytes Absolute Auto 400 /uL (0-900); Monocytes Percent Auto 7.5 % (3-14); Neutrophils Absolute Auto 2300 /uL (1500-7000); Neutrophils Percent Auto 46.8 % (50-75); Platelet Count 235 X10^3/uL (150-400); Red Blood Cell Count 5.16 X10^6/uL (4.0-5.2); White Blood Cell Count 4.9 X10^3/uL (4.5-11.0)
[2022-02-02 10:11] LABS: Alanine Aminotransferase 16 IU/L (<35); Albumin 4.2 g/dL (3.5-5.0); Albumin Globulin Ratio 1.7 (1.0-2.8); Alkaline Phosphatase 81 U/L (38-126); Aspartate Aminotransferase 19 IU/L (14-36); BUN Creatinine Ratio 17.4 (6-22); Bilirubin Total 0.5 mg/dL (0.2-1.3); Blood Urea Nitrogen 15 mg/dL (7-17); Calcium 8.9 mg/dL (8.4-10.2); Carbon Dioxide 23 mmol/L (22-32); Chloride 108 mmol/L (98-107); Estimated Glomerular Filt Rate > 60 mL/min (>60); Globulin 2.5 g/dL (1.7-4.1); Glucose 96 mg/dL (80-110); HEMOLYSIS < 15 (0-50); Potassium 4.2 mmol/L (3.4-5.1); Sodium 139 mmol/L (137-145); Total Protein 6.7 g/dL (6.3-8.2)
== END ==
PROVIDERS: Family Provider Family Medicine; PCP Family Medicine; Referring Provider Family Medicine; Visit Provider Family Medicine
DX: I10 Essential (primary) hypertension (principal); C50.919 Malignant neoplasm of unspecified site of unspecified female breast
CPT/HCPCS: 36415; 80053; 85025

== ENCOUNTER → 2022-10-21 10:57 | Outpatient (CLI) | payer MEDICARE, SELFPAY ==
--- NOTE | 2022-10-21 11:01 | DI.MG.S_ITS ---
BILATERAL DIGITAL SCREENING MAMMOGRAM 3D/2D WITH CAD: 10/21/2022 CLINICAL: Routine screening. Personal history of left breast cancer. Comparison is made to exams dated: 10/19/2021 mammogram, 10/02/2020 mammogram, 07/07/2011 mammogram, 12/29/2020 mammogram, and 10/26/2020 mammogram - [facility]. There are scattered areas of fibroglandular density in both breasts (category b / 25%-50% glandular tissue). Current study was also evaluated with a Computer Aided Detection (CAD) system. There are benign post operative findings in the left breast. No significant masses, calcifications, or other findings are seen in either breast. There has been no significant interval change. IMPRESSION: BENIGN There is no mammographic evidence of malignancy. A 1 year screening mammogram is recommended. This exam was interpreted at Station ID: [id number]. NOTE: For mammograms, a report in lay terms will be sent to the patient. Approximately 15% of breast malignancies will not be visualized mammographically. In the management of a palpable breast mass, a negative mammogram must not discourage biopsy of a clinically suspicious lesion. Electronically Signed By: Gregory goldman/louis:10/21/2022 11:55:53 letter sent: Normal Exam ACR BI-RADS Category 2: Benign Finding(s) 3342K
== END ==
PROVIDERS: Family Provider Family Medicine; PCP Family Medicine; Referring Provider Internal Medicine Hematology & Oncology; Visit Provider Internal Medicine Hematology & Oncology
DX: Z12.31 Encounter for screening mammogram for malignant neoplasm of breast (principal); C50.512 Malignant neoplasm of lower-outer quadrant of left female breast
CPT/HCPCS: 77063; 77067